=== PATIENT | female | born 1965 | race Caucasian/White ===

== ENCOUNTER 2017-01-08 01:00 | Emergency (ER) | payer BC ==
[~2017-01-08] VITALS: Ht 170.2 cm; Wt 63.5 kg
[~2017-01-08 01:00] MED LIST: [UNRECOGNIZED DRUG - REMARK]
--- NOTE | 2017-01-08 01:25 | NUR ---
to bed 4 ambulatory c/o facial laceration (nasal bridge laceration), pt denies ko. pt aaox4 no acute distress noted, resp even and unlabored. pending er md fuller.
--- NOTE | 2017-01-08 01:26 | NUR ---
er md at bedside to eval pt with orders received.
--- NOTE | 2017-01-08 01:46 | NUR ---
pt transported to radiology for ct head and ct facial.
--- NOTE | 2017-01-08 02:03 | NUR ---
pt back from radiology. pending ct results.
--- NOTE | 2017-01-08 04:26 | NUR ---
ct facial result received. er md garza aware.
--- NOTE | 2017-01-08 04:29 | NUR ---
emt at bedside for wound care.
--- NOTE | 2017-01-08 04:52 | NUR ---
er md at bedside for laceration repair.
--- NOTE | 2017-01-08 05:34 | NUR ---
Patient discharged to home in stable condition. Written and verbal after care instructions given. Patient verbalizes understanding of instruction. ambulatory with a steady gait noted. pt aaox4 no acute distress noted, resp even and unlabored. advice pt not to drive or operate any machinery due alcohol intake. pt verbalize understanding. pt at bedside to take pt home.
[2017-01-08 05:36] VITALS: BP 127/64
== END 2017-01-08 05:36 | disposition home or self-care (01) ==
LOC: ER 01:00
DX: S09.90XA Unspecified injury of head, initial encounter (principal); S01.21XA Laceration without foreign body of nose, initial encounter; S01.511A Laceration without foreign body of lip, initial encounter; S00.83XA Contusion of other part of head, initial encounter; F10.129 Alcohol abuse with intoxication, unspecified; F39 Unspecified mood [affective] disorder; W18.2XXA Fall in (into) shower or empty bathtub, initial encounter; Y93.89 Activity, other specified; Y92.89 Other specified places as the place of occurrence of the external cause; Y99.9 Unspecified external cause status
CPT/HCPCS: 12011; 70450; 70486; 99284; A4606; A6402; Z7610